=== PATIENT | male | born 1955 | race Hispanic/Latino ===

== ENCOUNTER 2022-08-12 14:09 | Inpatient (IN) | payer BC ==
[~2022-08-12] VITALS: Ht 165.1 cm; Wt 81.4 kg
[2022-08-12] VITALS (14 sets, daily range): BP systolic 98–144; BP diastolic 62–122; PULSE 93–107; RESP 22–38; TEMP 98.2–100; O2SAT 83–98
[2022-08-12] MEDS ORDERED: LACTATED RINGER'S 1,000 ML ONE (14:21)
[2022-08-12] MEDS ORDERED: SODIUM CHLORIDE 0.9% 1000ML 1,000 ML ONE (14:21)
[2022-08-12] MEDS ORDERED: SODIUM CHLORIDE 0.9% 1000ML 1,000 ML IV STA ×2 (14:29→15:12)
[2022-08-12] MEDS ORDERED: LACTATED RINGER'S 1,000 ML INJ ONE (14:30)
[2022-08-12] MEDS ORDERED: NOREPINEPHRINE 8 MG/D5W 250 ML 250 ML ONE (14:51)
[2022-08-12 14:55] LABS: BASOPHILS # (AUTO) 0.1 (0.0-0.1); BASOPHILS % 0.3 % (0.0-1.0); EOSINOPHILS % 0.1 % (0.0-6.0); HEMATOCRIT 27.7 % (38.2-49.6); LYMPHOCYTES # (AUTO) 1.5 (1.0-3.2); LYMPHOCYTES % 8.9 % (18.0-39.1); MEAN CORPUSCULAR HEMOGLOBIN 28.3 pg (28-32); MEAN CORPUSCULAR HGB CONC 36.1 g/dL (31-35); MEAN CORPUSCULAR VOLUME 78.5 fL (81-99); MONOCYTES # (AUTO) 0.5 (0.2-0.8); NEUTROPHILS # (AUTO) 14.3 (2.1-6.9); NEUTROPHILS % 86.4 % (38.7-80.0); PLATELET COUNT 146 x10e3/uL (140-360); RED BLOOD COUNT 3.53 x10e6/uL (4.3-5.7); RED CELL DISTRIBUTION WIDTH 14.3 % (11.7-14.4)
[2022-08-12 15:04] LABS: INR 1.22
[2022-08-12 15:05] LABS: PARTIAL THROMBOPLASTIN TIME 42.8 seconds (23.8-35.5)
[2022-08-12 15:13] LABS: ALBUMIN 2.3 g/dL (3.5-5.0); ALBUMIN/GLOBULIN RATIO 0.6 (0.8-2.0); ANION GAP 22.7 mmol/L (8-16); CALCIUM 7.3 mg/dL (8.4-10.2); CREATININE, SERUM 8.11 mg/dL (0.72-1.25); MAGNESIUM 2.3 MG/DL (1.3-2.1)
[2022-08-12 15:15] LABS: POTASSIUM 2.7 mmol/L (3.5-5.1)
[2022-08-12 15:16] LABS: CLARITY,URINE HAZY (CLEAR); COLOR,URINE YELLOW (YELLOW); KETONES,URINE NEGATIVE (NEGATIVE); LEUKOCYTE ESTERASE ,URINE NEGATIVE (NEGATIVE); NITRITE,URINE NEGATIVE (NEGATIVE); PROTEIN,URINE DIPSTICK NEGATIVE (NEGATIVE); URINE UROBILINOGEN 0.2 mg/dL (0.2 - 1)
[2022-08-12 15:18] LABS: BACTERIA,URINE MODERATE /HPF; EPITHELIAL CELLS,URINE FEW /LPF; WBC,URINE (MAN) 0-5 /HPF (0-5)
[2022-08-12 15:21] LABS: B-TYPE NATRIURETIC PEPTIDE2 58.1 pg/mL (0-100)
[2022-08-12] MEDS ORDERED: POTASSIUM CHLORIDE 10MEQ/100ML 200 ML IV ONE (15:30)
[2022-08-12] MEDS ORDERED: POTASSIUM CHLORIDE 10MEQ/100ML 200 ML ONE (15:51)
[2022-08-12] MEDS: NOREPINEPHRINE 8 MG/D5W 250 ML 250 ML IV SCH ×2 (16:00→20:34)
[2022-08-12] MEDS ORDERED: HYDROCORTISONE SOD SUCCINATE 100 MG VIAL IV ONE (16:00)
[2022-08-12 16:28] LABS: ABG HCO3 12 mmol/L (22-26); ABG PCO2 22 mmHg (35-45); ABG PH 7.36 (7.35-7.45); ABG PO2 101 mmHg (80-105)
[2022-08-12 16:29] LABS: ABG TCO2 13
[2022-08-12] MEDS ORDERED: ONDANSETRON HCL INJ 2MG/ML 2ML 2 MG/ML VIAL IV PRN (16:30)
[2022-08-12] MEDS ORDERED: POTASSIUM CHL 40 MEQ in DEXTROSE 5%/0.45% SOD CHL 1,000 ML IV ONE (16:30)
[2022-08-12] MEDS ORDERED: ACETAMINOPHEN 325 MG TAB PO PRN (16:45)
[2022-08-12] MEDS ORDERED: Vancomycin IV 1 GM in SODIUM CHLORIDE 0.9% 250ML 250 ML IV ONE (17:00)
[2022-08-12 18:58] LABS: BAND NEUTROPHILS % (MANUAL) 4 %; LYMPHOCYTES % (MANUAL) 9 % (19-48); NEUTROPHILS % (MANUAL) 86 % (40-74)
[2022-08-12 18:59] LABS: PLATELET ESTIMATE ADEQUATE; PLATELET MORPHOLOGY COMMENT NORMAL
[2022-08-12 19:00] LABS: RBC MORPHOLOGY COMMENT NORMAL
[2022-08-12] MEDS ORDERED: DEXTROSE 5%/0.45% SOD CHL 1,000 ML IV ONE (19:37)
[2022-08-12] MEDS: SODIUM BICARBONATE 8.4% 50 ML in DEXTROSE 5%/0.45% SOD CHL 1,000 ML IV SCH (20:34)
[2022-08-12] MEDS: POTASSIUM CHLORIDE 20MEQ/100ML 100 ML IV SCH (22:05)
[2022-08-13] VITALS (90 sets, daily range): BP systolic 78–112; BP diastolic 51–79; PULSE 65–96; RESP 15–41; TEMP 97.7–99.5; O2SAT 86–100
[2022-08-13] MEDS: NOREPINEPHRINE 8 MG/D5W 250 ML 250 ML IV SCH ×3 (00:58→21:33)
[2022-08-13] MEDS: POTASSIUM CHLORIDE 20MEQ/100ML 100 ML IV SCH ×3 (01:08→10:15)
[2022-08-13] MEDS ORDERED: DEXTROSE 5%/0.45% SOD CHL 1,000 ML IV ONE (05:37)
[2022-08-13] MEDS: SODIUM BICARBONATE 8.4% 50 ML in DEXTROSE 5%/0.45% SOD CHL 1,000 ML IV SCH ×2 (05:59→15:32)
[2022-08-13 06:36] LABS: BASOPHILS # (AUTO) 0.1 (0.0-0.1); BASOPHILS % 0.5 % (0.0-1.0); EOSINOPHILS % 0.1 % (0.0-6.0); HEMATOCRIT 30.8 % (38.2-49.6); HEMOGLOBIN 11.1 g/dL (14.0-18.0); LYMPHOCYTES # (AUTO) 2.3 (1.0-3.2); LYMPHOCYTES % 12.6 % (18.0-39.1); MEAN CORPUSCULAR HEMOGLOBIN 28.4 pg (28-32); MEAN CORPUSCULAR VOLUME 78.8 fL (81-99); MONOCYTES # (AUTO) 0.7 (0.2-0.8); MONOCYTES % 3.9 % (4.4-11.3); NEUTROPHILS # (AUTO) 14.8 (2.1-6.9); NEUTROPHILS % 80.8 % (38.7-80.0); PLATELET COUNT 177 x10e3/uL (140-360); RED BLOOD COUNT 3.91 x10e6/uL (4.3-5.7); RED CELL DISTRIBUTION WIDTH 14.4 % (11.7-14.4)
[2022-08-13 07:03] LABS: ALBUMIN 2.1 g/dL (3.5-5.0); ALBUMIN/GLOBULIN RATIO 0.5 (0.8-2.0); ANION GAP 15.8 mmol/L (8-16); CALCIUM 7.3 mg/dL (8.4-10.2); CREATININE, SERUM 4.62 mg/dL (0.72-1.25)
[2022-08-13 07:09] LABS: POTASSIUM 2.8 mmol/L (3.5-5.1)
[2022-08-13] MEDS ORDERED: ZIPRASIDONE 20 MG VIAL IM ONE (08:30)
[2022-08-13 09:11] LABS: LYMPHOCYTES % (MANUAL) 5 % (19-48); MONOCYTES % (MANUAL) 8 % (3.4-9.0); NEUTROPHILS % (MANUAL) 87 % (40-74); PLATELET ESTIMATE ADEQUATE; PLATELET MORPHOLOGY COMMENT NORMAL; RBC MORPHOLOGY COMMENT NORMAL
[2022-08-13] MEDS ORDERED: GUAIFENESIN/CODEINE 5 ML LIQD PO PRN (13:00)
[2022-08-13 14:29] LABS: ANION GAP 13.9 mmol/L (8-16); CALCIUM 7.5 mg/dL (8.4-10.2); CREATININE, SERUM 3.46 mg/dL (0.72-1.25); MAGNESIUM 1.8 MG/DL (1.3-2.1)
[2022-08-13 14:31] LABS: POTASSIUM 2.9 mmol/L (3.5-5.1)
[2022-08-13] MEDS ORDERED: POTASSIUM CHLORIDE 20MEQ/15ML UDC NG STA (15:13)
[2022-08-13] MEDS: LACTATED RINGER'S 1,000 ML INJ SCH (15:44)
[2022-08-13] MEDS ORDERED: POTASSIUM CHLORIDE 20MEQ/100ML 200 ML IV ONE (15:45)
[2022-08-13] MEDS ORDERED: KCL 20 MEQ PACKET/ ORAL SOLN NG ONE (15:45)
[2022-08-13] MEDS ORDERED: KCL 20 MEQ PACKET/ ORAL SOLN PO ONE (15:45)
[2022-08-13] MEDS ORDERED: MAGNESIUM SULF 1GRAM/DEXTROSE 100 ML IV ONE (17:00)
[2022-08-14] VITALS (82 sets, daily range): BP systolic 67–157; BP diastolic 44–140; PULSE 38–89; RESP 15–43; TEMP 98–98.6; O2SAT 93–100
[2022-08-14] MEDS: LACTATED RINGER'S 1,000 ML INJ SCH ×3 (01:01→21:34)
[2022-08-14] MEDS: NOREPINEPHRINE 8 MG/D5W 250 ML 250 ML IV SCH ×2 (05:15→15:07)
[2022-08-14 07:00] LABS: BASOPHILS # (AUTO) 0.1 (0.0-0.1); BASOPHILS % 0.5 % (0.0-1.0); EOSINOPHILS # (AUTO) 0.1 (0.0-0.4); EOSINOPHILS % 0.9 % (0.0-6.0); HEMATOCRIT 28.2 % (38.2-49.6); LYMPHOCYTES # (AUTO) 3.2 (1.0-3.2); LYMPHOCYTES % 23.4 % (18.0-39.1); MEAN CORPUSCULAR HEMOGLOBIN 28.1 pg (28-32); MEAN CORPUSCULAR HGB CONC 35.5 g/dL (31-35); MEAN CORPUSCULAR VOLUME 79.2 fL (81-99); MONOCYTES # (AUTO) 0.7 (0.2-0.8); MONOCYTES % 5.1 % (4.4-11.3); NEUTROPHILS # (AUTO) 9.5 (2.1-6.9); NEUTROPHILS % 68.5 % (38.7-80.0); PLATELET COUNT 206 x10e3/uL (140-360); RED BLOOD COUNT 3.56 x10e6/uL (4.3-5.7); RED CELL DISTRIBUTION WIDTH 14.6 % (11.7-14.4)
[2022-08-14 07:30] LABS: ALBUMIN/GLOBULIN RATIO 0.5 (0.8-2.0); ANION GAP 13.2 mmol/L (8-16); CALCIUM 7.6 mg/dL (8.4-10.2); CREATININE, SERUM 2.07 mg/dL (0.72-1.25); POTASSIUM 3.2 mmol/L (3.5-5.1)
[2022-08-14] MEDS: KCL 20 MEQ PACKET/ ORAL SOLN NG SCH (08:12)
[2022-08-14] MEDS ORDERED: POTASSIUM CHLORIDE 20MEQ/15ML UDC NG SCH (09:00)
[2022-08-14 09:21] LABS: EOSINOPHILS % (MANUAL) 2 % (0-7); LYMPHOCYTES % (MANUAL) 17 % (19-48); MONOCYTES % (MANUAL) 5 % (3.4-9.0); NEUTROPHILS % (MANUAL) 75 % (40-74)
[2022-08-14 09:22] LABS: PLATELET ESTIMATE ADEQUATE; PLATELET MORPHOLOGY COMMENT NORMAL; RBC MORPHOLOGY COMMENT NORMAL
[2022-08-14] MEDS ORDERED: DIATRIZOATE MEGL/DIATRIZOA SOD 30 ML BTL PO ONE (17:21)
[2022-08-14] MEDS: CALCIUM CARBONATE 500 MG CHEWABLE TABS PO SCH (20:15)
[2022-08-15] VITALS (96 sets, daily range): BP systolic 81–114; BP diastolic 49–83; PULSE 68–87; RESP 17–41; TEMP 98–98.3; O2SAT 88–100
[2022-08-15] MEDS: NOREPINEPHRINE 8 MG/D5W 250 ML 250 ML IV SCH (04:49)
[2022-08-15 06:50] LABS: BASOPHILS # (AUTO) 0.1 (0.0-0.1); BASOPHILS % 0.6 % (0.0-1.0); EOSINOPHILS # (AUTO) 0.1 (0.0-0.4); EOSINOPHILS % 1.2 % (0.0-6.0); HEMATOCRIT 27.6 % (38.2-49.6); HEMOGLOBIN 9.5 g/dL (14.0-18.0); LYMPHOCYTES # (AUTO) 3.4 (1.0-3.2); LYMPHOCYTES % 34.8 % (18.0-39.1); MEAN CORPUSCULAR HEMOGLOBIN 28.2 pg (28-32); MEAN CORPUSCULAR HGB CONC 34.4 g/dL (31-35); MEAN CORPUSCULAR VOLUME 81.9 fL (81-99); MONOCYTES # (AUTO) 0.6 (0.2-0.8); MONOCYTES % 5.6 % (4.4-11.3); NEUTROPHILS # (AUTO) 5.5 (2.1-6.9); NEUTROPHILS % 55.7 % (38.7-80.0); PLATELET COUNT 225 x10e3/uL (140-360); RED BLOOD COUNT 3.37 x10e6/uL (4.3-5.7); RED CELL DISTRIBUTION WIDTH 15.2 % (11.7-14.4)
[2022-08-15 07:14] LABS: ALBUMIN 1.9 g/dL (3.5-5.0); ALBUMIN/GLOBULIN RATIO 0.4 (0.8-2.0); ANION GAP 10.4 mmol/L (8-16); CALCIUM 7.6 mg/dL (8.4-10.2); CREATININE, SERUM 1.22 mg/dL (0.72-1.25); POTASSIUM 3.4 mmol/L (3.5-5.1)
[2022-08-15] MEDS ORDERED: ATORVASTATIN CA20 MG PO (08:28)
[2022-08-15] MEDS ORDERED: FLONASE ALLERG9.9 ML INH (08:28)
[2022-08-15] MEDS ORDERED: LISINOPRIL10 MG PO (08:28)
[2022-08-15] MEDS ORDERED: ULORIC80 MG PO (08:28)
[2022-08-15] MEDS: KCL 20 MEQ PACKET/ ORAL SOLN NG SCH (08:54)
[2022-08-15] MEDS: CALCIUM CARBONATE 500 MG CHEWABLE TABS PO SCH ×3 (08:54→20:13)
[2022-08-15] MEDS: FEBUXOSTAT 80 MG TAB PO SCH (12:52)
[2022-08-15] MEDS: FLUTICASONE PROPIONATE NASAL SPRAY NS SCH (12:52)
[2022-08-15] MEDS ORDERED: POTASSIUM CHLORIDE 20 MEQ TAB CR PO ONE (17:30)
[2022-08-15] MEDS: LACTATED RINGER'S 1,000 ML INJ SCH (20:13)
[2022-08-15] MEDS: ATORVASTATIN 40 MG TAB PO SCH (20:14)
[2022-08-16] VITALS (51 sets, daily range): BP systolic 87–134; BP diastolic 56–81; PULSE 69–95; RESP 13–41; TEMP 98.2–100.2; O2SAT 94–100
[2022-08-16] MEDS: LACTATED RINGER'S 1,000 ML INJ SCH (05:47)
[2022-08-16 06:43] LABS: BASOPHILS # (AUTO) 0.1 (0.0-0.1); BASOPHILS % 0.9 % (0.0-1.0); EOSINOPHILS # (AUTO) 0.1 (0.0-0.4); EOSINOPHILS % 1.2 % (0.0-6.0); HEMATOCRIT 26.4 % (38.2-49.6); LYMPHOCYTES # (AUTO) 2.8 (1.0-3.2); LYMPHOCYTES % 37.7 % (18.0-39.1); MEAN CORPUSCULAR HEMOGLOBIN 28.5 pg (28-32); MEAN CORPUSCULAR HGB CONC 34.1 g/dL (31-35); MEAN CORPUSCULAR VOLUME 83.5 fL (81-99); MONOCYTES # (AUTO) 0.4 (0.2-0.8); MONOCYTES % 5.8 % (4.4-11.3); NEUTROPHILS # (AUTO) 3.9 (2.1-6.9); NEUTROPHILS % 52.9 % (38.7-80.0); PLATELET COUNT 234 x10e3/uL (140-360); RED BLOOD COUNT 3.16 x10e6/uL (4.3-5.7); RED CELL DISTRIBUTION WIDTH 15.6 % (11.7-14.4)
[2022-08-16 07:11] LABS: ALBUMIN 1.8 g/dL (3.5-5.0); ALBUMIN/GLOBULIN RATIO 0.4 (0.8-2.0); ANION GAP 10.3 mmol/L (8-16); CALCIUM 7.7 mg/dL (8.4-10.2); CREATININE, SERUM 1.01 mg/dL (0.72-1.25); POTASSIUM 4.3 mmol/L (3.5-5.1)
[2022-08-16] MEDS: KCL 20 MEQ PACKET/ ORAL SOLN NG SCH (08:29)
[2022-08-16] MEDS: FEBUXOSTAT 80 MG TAB PO SCH (08:29)
[2022-08-16] MEDS: FLUTICASONE PROPIONATE NASAL SPRAY NS SCH (08:29)
[2022-08-16] MEDS: CALCIUM CARBONATE 500 MG CHEWABLE TABS PO SCH ×3 (08:29→20:37)
[2022-08-16 08:32] LABS: BAND NEUTROPHILS % (MANUAL) 3 %; EOSINOPHILS % (MANUAL) 1 % (0-7); LYMPHOCYTES % (MANUAL) 23 % (19-48); MONOCYTES % (MANUAL) 5 % (3.4-9.0); NEUTROPHILS % (MANUAL) 68 % (40-74); PLATELET ESTIMATE ADEQUATE; PLATELET MORPHOLOGY COMMENT NORMAL; RBC MORPHOLOGY COMMENT NORMAL
[2022-08-16] MEDS: CEFTRIAXONE 2 GM in SODIUM CHLORIDE 0.9% 100 ML IV SCH (16:45)
[2022-08-16] MEDS: NOREPINEPHRINE 8 MG/D5W 250 ML 250 ML IV SCH (17:30)
[2022-08-16] MEDS: ATORVASTATIN 40 MG TAB PO SCH (20:37)
[2022-08-17] VITALS (11 sets, daily range): BP systolic 108–121; BP diastolic 77–82; PULSE 75–87; RESP 17–20; TEMP 98.2–99.2; O2SAT 93–99
[2022-08-17] MEDS: CALCIUM CARBONATE 500 MG CHEWABLE TABS PO SCH ×3 (09:55→21:51)
[2022-08-17] MEDS: FEBUXOSTAT 80 MG TAB PO SCH (09:55)
[2022-08-17] MEDS: KCL 20 MEQ PACKET/ ORAL SOLN NG SCH (09:55)
[2022-08-17] MEDS: FLUTICASONE PROPIONATE NASAL SPRAY NS SCH (09:57)
[2022-08-17] MEDS: CEFTRIAXONE 2 GM in SODIUM CHLORIDE 0.9% 100 ML IV SCH (16:38)
[2022-08-17] MEDS: ZOLPIDEM TARTRATE 5 MG TAB PO PRN (21:51)
[2022-08-17] MEDS: ATORVASTATIN 40 MG TAB PO SCH (21:51)
[2022-08-18] VITALS (10 sets, daily range): BP systolic 99–122; BP diastolic 59–76; PULSE 70–101; RESP 16–20; TEMP 98–100; O2SAT 94–100
[2022-08-18 06:55] LABS: BASOPHILS # (AUTO) 0.1 (0.0-0.1); BASOPHILS % 1.2 % (0.0-1.0); EOSINOPHILS # (AUTO) 0.1 (0.0-0.4); EOSINOPHILS % 1.2 % (0.0-6.0); HEMATOCRIT 29.5 % (38.2-49.6); HEMOGLOBIN 9.5 g/dL (14.0-18.0); LYMPHOCYTES # (AUTO) 3.4 (1.0-3.2); LYMPHOCYTES % 46.1 % (18.0-39.1); MEAN CORPUSCULAR HEMOGLOBIN 28.1 pg (28-32); MEAN CORPUSCULAR HGB CONC 32.2 g/dL (31-35); MEAN CORPUSCULAR VOLUME 87.3 fL (81-99); MONOCYTES # (AUTO) 0.5 (0.2-0.8); MONOCYTES % 6.1 % (4.4-11.3); NEUTROPHILS # (AUTO) 3.3 (2.1-6.9); NEUTROPHILS % 44.3 % (38.7-80.0); PLATELET COUNT 291 x10e3/uL (140-360); RED BLOOD COUNT 3.38 x10e6/uL (4.3-5.7); RED CELL DISTRIBUTION WIDTH 15.1 % (11.7-14.4)
[2022-08-18 07:22] LABS: ANION GAP 12.3 mmol/L (8-16); CALCIUM 8.4 mg/dL (8.4-10.2); CREATININE, SERUM 0.99 mg/dL (0.72-1.25); POTASSIUM 4.3 mmol/L (3.5-5.1)
[2022-08-18] MEDS: FLUTICASONE PROPIONATE NASAL SPRAY NS SCH (08:15)
[2022-08-18] MEDS: KCL 20 MEQ PACKET/ ORAL SOLN NG SCH (08:15)
[2022-08-18] MEDS: FEBUXOSTAT 80 MG TAB PO SCH (08:15)
[2022-08-18] MEDS: CALCIUM CARBONATE 500 MG CHEWABLE TABS PO SCH ×3 (08:15→20:41)
[2022-08-18] MEDS ORDERED: SODIUM CHLORIDE 0.9% 250ML 250 ML ONE (15:19)
[2022-08-18] MEDS: CEFTRIAXONE 2 GM in SODIUM CHLORIDE 0.9% 100 ML IV SCH (15:47)
[2022-08-18] MEDS ORDERED: SODIUM CHLORIDE 0.9% 500ML 500 ML IV ONE (17:15)
[2022-08-18] MEDS: ZOLPIDEM TARTRATE 5 MG TAB PO PRN (20:40)
[2022-08-18] MEDS: ATORVASTATIN 40 MG TAB PO SCH (20:41)
[2022-08-19] VITALS (9 sets, daily range): BP systolic 97–120; BP diastolic 46–78; PULSE 68–93; RESP 17–20; TEMP 98.1–99.7; O2SAT 98–100
[2022-08-19 07:16] LABS: BASOPHILS # (AUTO) 0.1 (0.0-0.1); BASOPHILS % 1.1 % (0.0-1.0); EOSINOPHILS # (AUTO) 0.1 (0.0-0.4); HEMATOCRIT 29.1 % (38.2-49.6); HEMOGLOBIN 9.6 g/dL (14.0-18.0); LYMPHOCYTES % 49.1 % (18.0-39.1); MEAN CORPUSCULAR HEMOGLOBIN 28.2 pg (28-32); MEAN CORPUSCULAR VOLUME 85.6 fL (81-99); MONOCYTES # (AUTO) 0.6 (0.2-0.8); MONOCYTES % 7.8 % (4.4-11.3); NEUTROPHILS # (AUTO) 3.3 (2.1-6.9); NEUTROPHILS % 40.5 % (38.7-80.0); PLATELET COUNT 278 x10e3/uL (140-360); RED CELL DISTRIBUTION WIDTH 15.2 % (11.7-14.4)
[2022-08-19 07:32] LABS: ANION GAP 11.3 mmol/L (8-16); CALCIUM 8.5 mg/dL (8.4-10.2); CREATININE, SERUM 1.04 mg/dL (0.72-1.25); POTASSIUM 4.3 mmol/L (3.5-5.1)
[2022-08-19] MEDS: KCL 20 MEQ PACKET/ ORAL SOLN NG SCH (08:21)
[2022-08-19] MEDS: FEBUXOSTAT 80 MG TAB PO SCH (08:21)
[2022-08-19] MEDS: CALCIUM CARBONATE 500 MG CHEWABLE TABS PO SCH ×3 (08:21→21:00)
[2022-08-19] MEDS: FLUTICASONE PROPIONATE NASAL SPRAY NS SCH (08:21)
[2022-08-19] MEDS: CEFTRIAXONE 2 GM in SODIUM CHLORIDE 0.9% 100 ML IV SCH (16:39)
[2022-08-19] MEDS: ATORVASTATIN 40 MG TAB PO SCH (21:00)
[2022-08-20] VITALS (7 sets, daily range): BP systolic 99–109; BP diastolic 66–73; PULSE 71–88; RESP 17–21; TEMP 97.3–99.1; O2SAT 95–99
[2022-08-20] MEDS: FEBUXOSTAT 80 MG TAB PO SCH (07:53)
[2022-08-20] MEDS: KCL 20 MEQ PACKET/ ORAL SOLN NG SCH (07:53)
[2022-08-20] MEDS: CALCIUM CARBONATE 500 MG CHEWABLE TABS PO SCH ×2 (07:53→16:19)
[2022-08-20] MEDS: FLUTICASONE PROPIONATE NASAL SPRAY NS SCH (07:54)
[2022-08-20] MEDS ORDERED: ONDANSETRON HCL 4 MG ORAL DISINTEGRATING TAB PO PRN (11:45)
[2022-08-20] MEDS ORDERED: SODIUM CHLORIDE 0.9% 250ML 250 ML ONE (15:06)
[2022-08-20] MEDS: CEFTRIAXONE 2 GM in SODIUM CHLORIDE 0.9% 100 ML IV SCH (16:19)
[2022-08-20] MEDS ORDERED: keflex PO (18:36)
== END 2022-08-20 20:42 | disposition home or self-care (01) | DRG 871 ==
LOC: ER 14:13 → ERHOLD 16:04 → ICU 18:04 → MED/SURG3 08-16 18:49
PROVIDERS: ADMIT Family Medicine; ATTEND Family Medicine
PROC: 02HV33Z Insertion of Infusion Device into Superior Vena Cava, Percutaneous Approach (ICD-10-PCS; principal; 2022-08-12)
PROC: B548ZZA Ultrasonography of Superior Vena Cava, Guidance (ICD-10-PCS; 2022-08-12)
PROC: 3E03329 Introduction of Other Anti-infective into Peripheral Vein, Percutaneous Approach (ICD-10-PCS; 2022-08-12)
PROC: 3E043XZ Introduction of Vasopressor into Central Vein, Percutaneous Approach (ICD-10-PCS; 2022-08-12)
PROC: 4A133R1 Monitoring of Arterial Saturation, Peripheral, Percutaneous Approach (ICD-10-PCS; 2022-08-12)
DX: A41.9 Sepsis, unspecified organism (principal); G93.41 Metabolic encephalopathy; J18.9 Pneumonia, unspecified organism; R65.21 Severe sepsis with septic shock; E87.20 Acidosis, unspecified; M62.82 Rhabdomyolysis; E87.5 Hyperkalemia; N19 Unspecified kidney failure; E86.0 Dehydration; I10 Essential (primary) hypertension; I95.89 Other hypotension; D64.9 Anemia, unspecified; E83.51 Hypocalcemia; R53.81 Other malaise; Z20.822 Contact with and (suspected) exposure to COVID-19
CPT/HCPCS: 36415; 36555; 36600; 51700; 70450; 71045; 74176; 76770; 80048; 80053; 81001; 82140; 82533; 82550; 82805; 83605; 83735; 83880; 84132; 84484; 85025; 85610; 85730; 87040; 87086; 93005; 93306; 94799; 99285; J0692; J0696; J3475; J3480; J7030; J7040; J7050; Q9963